=== PATIENT | female | born 1950 | race Two or more races ===

== ENCOUNTER → 2022-07-16 | Outpatient (CLI) | payer BC | END | disposition home or self-care (01) | LOC: XY 09:03 | PROVIDERS: ATTEND Internal Medicine | DX: M25.471 Effusion, right ankle (principal); R60.9 Edema, unspecified | CPT/HCPCS: 93970 ==

== ENCOUNTER → 2022-11-11 | Outpatient (CLI) | payer OTHER ==
[2022-11-11 11:55] LABS: Basophils # (auto) 0 10 ^3/uL (0-0.2); Basophils % (auto) 0.3 % (0.0-2.0); Eosinophils # (auto) 0.1 10 ^3/uL (0-0.8); Eosinophils % (auto) 1.1 % (0.0-7.0); Hematocrit 39.3 % (36.0-46.0); Hemoglobin 13.7 g/dL (12.2-16.2); Lymphocytes # (auto) 1.6 10 ^3/uL (0.4-5.4); Lymphocytes % (auto) 24.6 % (10.0-50.0); Mean Corpuscular Hemoglobin 31.1 pg (28.0-32.0); Mean Corpuscular Hgb Conc. 34.7 g/dL (32.0-36.0); Mean Corpuscular Volume 89.6 fL (80.0-100.0); Monocytes # (auto) 0.4 10 ^3/uL (0-1.3); Monocytes % (auto) 5.5 % (0.0-12.0); Neutrophils # (auto) 4.4 10 ^3/uL (1.6-8.6); Neutrophils % (auto) 68.5 % (37.0-80.0); Nucleated Red Blood Cells % 0.1 %; Red Blood Cells 4.39 10^6/uL (4.0-5.20); White Blood Cell 6.4 10^3/uL (4.4-10.8)
[2022-11-11 12:01] LABS: Albumin 3.8 g/dL (3.4-5.0); Calcium 9.4 mg/dL (8.5-10.1); Potassium 4.1 mmol/L (3.5-5.1)
[2022-11-11 12:07] LABS: BUN/Creatinine Ratio 22.9; Bilirubin, Total 0.7 mg/dL (0.2-1.0); Total Protein 7.7 g/dL (6.4-8.2)
== END | disposition home or self-care (01) ==
LOC: LAB 11:07
PROVIDERS: ATTEND Internal Medicine
DX: E78.5 Hyperlipidemia, unspecified (principal); E03.9 Hypothyroidism, unspecified; R73.03 Prediabetes
CPT/HCPCS: 36415; 80053; 80061; 83036; 84439; 84443; 85025

== ENCOUNTER 2023-07-20 15:51 | Emergency (ER) | payer BC, OTHER ==
[~2023-07-20] VITALS: Ht 160 cm; Wt 105.9 kg
[2023-07-20 17:35] LABS: Basophils # (auto) 0 10 ^3/uL (0-0.2); Basophils % (auto) 0.4 % (0.0-2.0); Eosinophils # (auto) 0.1 10 ^3/uL (0-0.8); Eosinophils % (auto) 1.6 % (0.0-7.0); Hematocrit 39.8 % (36.0-46.0); Hemoglobin 13.5 g/dL (12.2-16.2); Lymphocytes # (auto) 1.8 10 ^3/uL (0.4-5.4); Lymphocytes % (auto) 30.4 % (10.0-50.0); Mean Corpuscular Hemoglobin 30.8 pg (28.0-32.0); Mean Corpuscular Hgb Conc. 33.8 g/dL (32.0-36.0); Mean Corpuscular Volume 91.1 fL (80.0-100.0); Monocytes # (auto) 0.4 10 ^3/uL (0-1.3); Monocytes % (auto) 6.4 % (0.0-12.0); Neutrophils # (auto) 3.6 10 ^3/uL (1.6-8.6); Neutrophils % (auto) 61.2 % (37.0-80.0); Nucleated Red Blood Cells % 0.1 %; Red Blood Cells 4.37 10^6/uL (4.0-5.20); Red Cell Distribution Width 13.2 % (11.8-14.3); White Blood Cell 5.9 10^3/uL (4.4-10.8)
[2023-07-20 18:06] LABS: Alanine Aminotransferase 34 U/L (7-40); Albumin 4.9 g/dL (3.2-4.8); Alkaline Phosphatase 81 U/L (46-116); Anion Gap 7 (5-15); Aspartate Aminotransferase 20 U/L (13-40); BUN/Creatinine Ratio 15.9 (10.0-20.0); Bilirubin, Total 0.5 mg/dL (0.2-1.0); Blood Urea Nitrogen 11 mg/dL (9-23); Calcium 9.6 mg/dL (8.7-10.4); Carbon Dioxide 28 mmol/L (20-30); Chloride 105 mmol/L (98-107); Glucose 106 mg/dL (74-106); Potassium 3.7 mmol/L (3.5-5.1); Sodium 140 mmol/L (136-145); Total Protein 7.1 g/dL (5.7-8.2)
[2023-07-20 18:22] LABS: INR 0.99 (0.9-1.15); Partial Thromboplastin Time 26.8 SEC (24.5-34.5); Prothrombin Time 10.4 sec (9.3-11.8)
[2023-07-20 18:46] LABS: Urine Bacteria NONE SEEN /hpf (None Seen); Urine Blood Negative /uL (Negative); Urine Clarity Clear (Clear); Urine Color Yellow (Yellow); Urine Mucus FEW (None Seen); Urine Protein, UAD Negative (Negative); Urine Specific Gravity 1.014 (1.001-1.035); Urine Urobilinogen Normal (Negative); Urine WBC 1 /hpf (0 - 5); Urine pH 6.5 (5.0-8.0)
[2023-07-20 20:20] VITALS: PULSE 65; RESP 20; TEMP 98.4; O2SAT 97
[2023-07-20] MEDS ORDERED: ASPirin 325 MG TAB PO ONE (20:30)
[2023-07-20] MEDS ORDERED: cloNIDine HCL 0.1 MG TAB PO ONE (20:45)
[2023-07-20] MEDS ORDERED: cloNIDine 0.1 mg/24hr 7 DAY PATCH TD ONE (20:45)
[2023-07-20 21:48] VITALS: BP 123/70; PULSE 52; RESP 20; O2SAT 95
[2023-07-20] MEDS ORDERED: LOSA25TA15 PO (21:53)
== END 2023-07-20 22:04 | disposition home or self-care (01) ==
LOC: ER 15:51
DX: G45.9 Transient cerebral ischemic attack, unspecified (principal); R06.02 Shortness of breath
CPT/HCPCS: 36415; 70450; 71045; 80053; 81001; 85025; 85610; 85730; 93005

== ENCOUNTER → 2023-08-12 | Outpatient (CLI) | payer OTHER ==
[~2023-08-12] MED LIST: LOSA25TA15 PO
[2023-08-12 13:20] LABS: Chloride 105 mmol/L (98-107); Sodium 141 mmol/L (136-145)
[2023-08-12 13:21] LABS: Anion Gap 6 (5-15); Calcium 9.6 mg/dL (8.5-10.1); Carbon Dioxide 30 mmol/L (20-30)
[2023-08-12 13:26] LABS: BUN/Creatinine Ratio 15.8 (10.0-20.0); Blood Urea Nitrogen 12 mg/dL (9-23); Glucose 117 mg/dL (74-106)
== END | disposition home or self-care (01) ==
LOC: LAB 13:01
PROVIDERS: ATTEND Internal Medicine
DX: G45.9 Transient cerebral ischemic attack, unspecified (principal)
CPT/HCPCS: 36415; 80048

== ENCOUNTER → 2023-08-17 | Outpatient (CLI) | payer OTHER | END | disposition home or self-care (01) | LOC: XYW 12:26 | PROVIDERS: ATTEND Internal Medicine | DX: I13.10 Hypertensive heart and chronic kidney disease without heart failure, with stage 1 through stage 4 chronic kidney disease, or unspecified chronic kidney disease (principal); N18.9 Chronic kidney disease, unspecified; G45.9 Transient cerebral ischemic attack, unspecified | CPT/HCPCS: 93306 ==

== ENCOUNTER → 2023-09-09 | Outpatient (CLI) | payer OTHER ==
[2023-09-09 10:07] LABS: Basophils # (auto) 0 10 ^3/uL (0-0.2); Basophils % (auto) 0.4 % (0.0-2.0); Eosinophils # (auto) 0.1 10 ^3/uL (0-0.8); Eosinophils % (auto) 1.5 % (0.0-7.0); Hematocrit 38.6 % (36.0-46.0); Lymphocytes # (auto) 1.7 10 ^3/uL (0.4-5.4); Lymphocytes % (auto) 23.9 % (10.0-50.0); Mean Corpuscular Hemoglobin 30.6 pg (28.0-32.0); Mean Corpuscular Hgb Conc. 33.6 g/dL (32.0-36.0); Mean Corpuscular Volume 91.1 fL (80.0-100.0); Monocytes # (auto) 0.4 10 ^3/uL (0-1.3); Monocytes % (auto) 5.8 % (0.0-12.0); Neutrophils # (auto) 4.8 10 ^3/uL (1.6-8.6); Neutrophils % (auto) 68.4 % (37.0-80.0); Nucleated Red Blood Cells % 0.1 %; Red Blood Cells 4.24 10^6/uL (4.0-5.20); Red Cell Distribution Width 13.3 % (11.8-14.3)
[2023-09-09 10:29] LABS: Urine Bacteria NONE SEEN /hpf (None Seen); Urine Blood Negative /uL (Negative); Urine Clarity Clear (Clear); Urine Color Yellow (Yellow); Urine Mucus FEW (None Seen); Urine Protein, UAD TRACE (Negative); Urine Specific Gravity 1.028 (1.001-1.035); Urine Urobilinogen Normal (Negative); Urine WBC 10 /hpf (0 - 5); Urine pH 5.5 (5.0-8.0)
[2023-09-09 11:04] LABS: Alanine Aminotransferase 25 U/L (7-40); Albumin 4.4 g/dL (3.2-4.8); Alkaline Phosphatase 78 U/L (46-116); Anion Gap 6 (5-15); Aspartate Aminotransferase 17 U/L (13-40); Bilirubin, Total 0.6 mg/dL (0.2-1.0); Blood Urea Nitrogen 17 mg/dL (9-23); Calcium 9.2 mg/dL (8.5-10.1); Carbon Dioxide 29 mmol/L (20-30); Chloride 108 mmol/L (98-107); Cholesterol 129 mg/dL (< 200); Glucose 117 mg/dL (74-106); HDL Cholesterol 47 mg/dL (40-59); LDL Cholesterol 70 mg/dL (< 100); Potassium 3.9 mmol/L (3.5-5.1); Sodium 143 mmol/L (136-145); Total Protein 7.3 g/dL (5.7-8.2); Triglycerides 85 mg/dL (< 150)
== END | disposition home or self-care (01) ==
LOC: LAB 09:45
PROVIDERS: ATTEND Internal Medicine
DX: N18.2 Chronic kidney disease, stage 2 (mild) (principal); E78.5 Hyperlipidemia, unspecified; E03.9 Hypothyroidism, unspecified; R73.03 Prediabetes
CPT/HCPCS: 36415; 80053; 80061; 81001; 83036; 84439; 84443; 85025

== ENCOUNTER → 2023-10-11 | Outpatient (CLI) | payer OTHER ==
[2023-10-11 13:56] LABS: Urine Bacteria NONE SEEN /hpf (None Seen); Urine Blood Negative /uL (Negative); Urine Clarity Clear (Clear); Urine Color Yellow (Yellow); Urine Mucus FEW (None Seen); Urine Protein, UAD TRACE (Negative); Urine Specific Gravity 1.023 (1.001-1.035); Urine Urobilinogen Normal (Negative); Urine WBC 17 /hpf (0 - 5); Urine pH 5.5 (5.0-8.0)
[2023-10-11 14:09] LABS: Chloride 102 mmol/L (98-107); Potassium 3.5 mmol/L (3.5-5.1); Sodium 140 mmol/L (136-145)
[2023-10-11 14:10] LABS: Anion Gap 9 (5-15); Calcium 9.9 mg/dL (8.5-10.1); Carbon Dioxide 29 mmol/L (20-30)
[2023-10-11 14:15] LABS: Blood Urea Nitrogen 16 mg/dL (9-23); Glucose 145 mg/dL (74-106)
== END | disposition home or self-care (01) ==
LOC: LAB 13:24
PROVIDERS: ATTEND Internal Medicine
DX: I12.9 Hypertensive chronic kidney disease with stage 1 through stage 4 chronic kidney disease, or unspecified chronic kidney disease (principal); N18.2 Chronic kidney disease, stage 2 (mild); R82.90 Unspecified abnormal findings in urine
CPT/HCPCS: 36415; 80048; 81001; 82306

== ENCOUNTER 2024-03-24 14:33 | Emergency (ER) | payer BC, OTHER ==
[~2024-03-24] VITALS: Ht 160 cm; Wt 100.0 kg
[~2024-03-24 14:33] MED LIST changes: +LOSA-533 PO; -LOSA25TA15 PO
[2024-03-24 15:05] VITALS: BP 145/76; PULSE 56; RESP 16; TEMP 97.9; O2SAT 95
== END 2024-03-24 15:38 | disposition home or self-care (01) ==
LOC: ER 14:33
DX: S09.90XA Unspecified injury of head, initial encounter (principal); I10 Essential (primary) hypertension; Z86.73 Personal history of transient ischemic attack (TIA), and cerebral infarction without residual deficits; Z79.899 Other long term (current) drug therapy; W18.39XA Other fall on same level, initial encounter; Y93.89 Activity, other specified; Y92.89 Other specified places as the place of occurrence of the external cause; Y99.8 Other external cause status
CPT/HCPCS: 70450

== ENCOUNTER → 2024-04-24 | Outpatient (CLI) | payer OTHER ==
[2024-04-24 11:27] LABS: Anion Gap 6 (5-15); Carbon Dioxide 27 mmol/L (20-30); Chloride 105 mmol/L (98-107); Potassium 3.7 mmol/L (3.5-5.1); Sodium 138 mmol/L (136-145)
[2024-04-24 11:28] LABS: Calcium 9.8 mg/dL (8.5-10.1)
[2024-04-24 11:33] LABS: BUN/Creatinine Ratio 18.7 (10.0-20.0); Blood Urea Nitrogen 14 mg/dL (9-23); Glucose 128 mg/dL (74-106)
== END | disposition home or self-care (01) ==
LOC: LAB 10:30
PROVIDERS: ATTEND Internal Medicine
DX: I12.9 Hypertensive chronic kidney disease with stage 1 through stage 4 chronic kidney disease, or unspecified chronic kidney disease (principal); N18.2 Chronic kidney disease, stage 2 (mild); R11.0 Nausea; R60.0 Localized edema; R45.0 Nervousness
CPT/HCPCS: 36415; 80048

== ENCOUNTER → 2024-12-04 | Outpatient (CLI) | payer BC ==
[2024-12-04 10:23] LABS: Urine Bacteria None Seen /hpf (None Seen)
[2024-12-04 11:54] LABS: Basophils # (auto) 0 10 ^3/uL (0-0.2); Basophils % (auto) 0.2 % (0.0-2.0); Eosinophils # (auto) 0.1 10 ^3/uL (0-0.8); Eosinophils % (auto) 1.9 % (0.0-7.0); Hematocrit 38.1 % (36.0-46.0); Lymphocytes # (auto) 1.6 10 ^3/uL (0.4-5.4); Lymphocytes % (auto) 28.5 % (10.0-50.0); Mean Corpuscular Hemoglobin 31.5 pg (28.0-32.0); Mean Corpuscular Hgb Conc. 34.2 g/dL (32.0-36.0); Mean Corpuscular Volume 92.4 fL (80.0-100.0); Monocytes # (auto) 0.3 10 ^3/uL (0-1.3); Monocytes % (auto) 5.7 % (0.0-12.0); Neutrophils # (auto) 3.6 10 ^3/uL (1.6-8.6); Neutrophils % (auto) 63.7 % (37.0-80.0); Nucleated Red Blood Cells % 0.1 %; Platelet Count (auto) 183 10^3/uL (140-450); Red Blood Cells 4.12 10^6/uL (4.0-5.20); Red Cell Distribution Width 12.8 % (11.8-14.3); White Blood Cell 5.6 10^3/uL (4.4-10.8)
[2024-12-04 12:12] LABS: Urine Blood Negative /uL (Negative); Urine Clarity Clear (Clear); Urine Color Yellow (Yellow); Urine Mucus FEW (None Seen); Urine Protein, UAD TRACE (Negative); Urine Specific Gravity 1.026 (1.001-1.035); Urine Squamous Epithelial Cell FEW /hpf (<5); Urine Urobilinogen Normal (Negative); Urine WBC 2 /HPF (0-5); Urine pH 5.5 (5.0-9.0)
[2024-12-04 12:29] LABS: Alanine Aminotransferase 15 U/L (7-40); Alkaline Phosphatase 77 U/L (46-116); Anion Gap 8 (5-15); Carbon Dioxide 29 mmol/L (20-31); Chloride 104 mmol/L (98-107); Potassium 4.1 mmol/L (3.5-5.1); Sodium 141 mmol/L (136-145); Triglycerides 98 mg/dL (< 150)
[2024-12-04 12:30] LABS: BUN/Creatinine Ratio 19.5 (10.0-20.0); Blood Urea Nitrogen 15 mg/dL (9-23); LDL Cholesterol 90 mg/dL (< 100)
[2024-12-04 12:31] LABS: Albumin 4.6 g/dL (3.2-4.8); Aspartate Aminotransferase 14 U/L (13-40); Cholesterol 149 mg/dL (< 200); Glucose 117 mg/dL (74-106); HDL Cholesterol 49 mg/dL (40-59)
[2024-12-04 12:42] LABS: Bilirubin, Total 0.6 mg/dL (0.2-1.0)
[2024-12-04 12:43] LABS: Total Protein 7.2 g/dL (5.7-8.2)
== END | disposition home or self-care (01) ==
LOC: LAB 10:09
PROVIDERS: ATTEND Internal Medicine
DX: Z00.01 Encounter for general adult medical examination with abnormal findings (principal); I12.9 Hypertensive chronic kidney disease with stage 1 through stage 4 chronic kidney disease, or unspecified chronic kidney disease; N18.2 Chronic kidney disease, stage 2 (mild); E55.9 Vitamin D deficiency, unspecified; R00.1 Bradycardia, unspecified; R73.03 Prediabetes; R82.90 Unspecified abnormal findings in urine
CPT/HCPCS: 36415; 80053; 80061; 81001; 82306; 83036; 84439; 84443; 85025

== ENCOUNTER 2025-08-06 10:34 | Outpatient (CLI) | payer BC ==
[2025-08-06 11:21] LABS: Hematocrit 40.3 % (36.0-46.0); Hemoglobin 13.7 g/dL (12.2-16.2); Mean Corpuscular Hemoglobin 31.0 pg (28.0-32.0); Mean Corpuscular Volume 91.1 fL (80.0-100.0); Nucleated Red Blood Cells % 0.1 %
[2025-08-06 12:01] LABS: Free T3 2.84 pg/mL (2.3-4.2)
[2025-08-06 12:02] LABS: Alanine Aminotransferase 13 U/L (7-40); Albumin 4.6 g/dL (3.2-4.8); Alkaline Phosphatase 79 U/L (46-116); Anion Gap 10 (5-15); BUN/Creatinine Ratio 11.4 (10.0-20.0); Blood Urea Nitrogen 12 mg/dL (9-23); Calcium 9.5 mg/dL (8.7-10.4); Carbon Dioxide 28 mmol/L (20-31); Chloride 103 mmol/L (98-107); Cholesterol 147 mg/dL (< 200); Free T4 (Free Thyroxine) 1.11 ng/dL (0.89-1.76); HDL Cholesterol 53 mg/dL (40-59); Potassium 4.6 mmol/L (3.5-5.1); Sodium 141 mmol/L (136-145); Total Protein 7.8 g/dL (5.7-8.2); Triglycerides 76 mg/dL (< 150)
[2025-08-06 12:03] LABS: Bilirubin, Total 0.6 mg/dL (0.2-1.0); Glucose 110 mg/dL (74-106)
== END 2025-08-06 17:00 | disposition home or self-care (01) ==
LOC: LAB 10:34
PROVIDERS: ATTEND Internal Medicine
DX: E78.5 Hyperlipidemia, unspecified (principal); R73.03 Prediabetes
CPT/HCPCS: 36415; 80053; 80061; 84439; 84443; 84481; 85025

== ENCOUNTER 2025-09-03 09:18 | Outpatient (CLI) | payer BC ==
[2025-09-03 10:17] LABS: Hematocrit 38.0 % (36.0-46.0); Hemoglobin 12.9 g/dL (12.2-16.2); Mean Corpuscular Hemoglobin 31.1 pg (28.0-32.0); Mean Corpuscular Volume 91.5 fL (80.0-100.0); Nucleated Red Blood Cells % 0.0 %
[2025-09-03 10:38] LABS: Urine Protein, UAD TRACE (Negative)
[2025-09-03 10:42] LABS: Alanine Aminotransferase 13 U/L (7-40); Alkaline Phosphatase 84 U/L (46-116); Calcium 9.1 mg/dL (8.7-10.4); Carbon Dioxide 29 mmol/L (20-31); Chloride 102 mmol/L (98-107); Triglycerides 102 mg/dL (< 150)
[2025-09-03 10:43] LABS: Albumin 4.4 g/dL (3.2-4.8); Anion Gap 9 (5-15); BUN/Creatinine Ratio 16.9 (10.0-20.0); Bilirubin, Total 0.8 mg/dL (0.2-1.0); Blood Urea Nitrogen 14 mg/dL (9-23); Cholesterol 145 mg/dL (< 200); HDL Cholesterol 47 mg/dL (40-59); Potassium 3.7 mmol/L (3.5-5.1); Sodium 140 mmol/L (136-145); Total Protein 7.5 g/dL (5.7-8.2)
[2025-09-03 10:48] LABS: Glucose 109 mg/dL (74-106)
== END 2025-09-03 17:00 | disposition home or self-care (01) ==
LOC: LAB 09:18
PROVIDERS: ATTEND Internal Medicine
DX: N18.2 Chronic kidney disease, stage 2 (mild) (principal); E78.5 Hyperlipidemia, unspecified; E55.9 Vitamin D deficiency, unspecified; R73.03 Prediabetes
CPT/HCPCS: 36415; 80053; 80061; 81001; 82306; 83036; 84439; 84443; 85025

== ENCOUNTER 2025-09-07 09:57 | Day surgery (SDC) | payer BC ==
[2025-09-04 11:18] LABS: INR 0.98 (0.9-1.15); Partial Thromboplastin Time 25.6 SEC (24.5-34.5); Prothrombin Time 10.4 sec (9.3-11.8)
[~2025-09-07] VITALS: Ht 160 cm; Wt 98.4 kg
[2025-09-07] MEDS ORDERED: SODIUM CHLORIDE LOCK 10 ML ONE (10:10)
[2025-09-07 10:39] VITALS: PULSE 51; RESP 13; O2SAT 100
[2025-09-07] MEDS: diphenhydrAMINE HCL 50 MG/1 ML VL ONE (10:42)
[2025-09-07] MEDS: MIDAZOLAM HCL 5 MG/ML-1ML VIAL ONE (10:42)
[2025-09-07] MEDS: fentaNYL CITRATE 100 MCG/2 ML VL ONE (10:42)
--- NOTE | 2025-09-07 11:01 | DVHOP2 ---
Operative Report DATE OF OPERATION: 09/07/25 PROCEDURE: Colonoscopy with cold biopsy. PREOPERATIVE INDICATION: The patient is a 75 -year-old female undergoing colonoscopy for surveillance with personal history of colon polyps and family history of rectal cancer POSTOPERATIVE DIAGNOSES: 1. Moderate left colon diverticular disease most prominent in the sigmoid with sigmoid muscular hypertrophy and minimal associated sigmoiditis from which biopsies were obtained 2. Trace internal hemorrhoids otherwise completely normal colonoscopy examination up to the cecum and terminal ileum PROCEDURE PERFORMED BY: Jayla Serrano M.D. SCOPE: Olympus videocolonoscope. ASA CLASS: 2 PREOPERATIVE MEDICATIONS: Versed 4 mg, Fentanyl 100 mcg, Benadryl 50 mg PROCEDURE IN DETAIL: After obtaining an informed consent, the patient was placed on left lateral decubitus position. She was then sedated with the above medications. A rectal examination was performed that was normal. The colonoscope was then passed through the anus into the rectosigmoid and through the descending, transverse, and ascending colon up to the cecum with visualization of the appendiceal orifice, base of the cecum and the ileocecal valve. The colonoscope was then withdrawn. The distal 5 cm of the terminal ileum were normal No masses or polyps were seen. Patient had moderate left colon diverticular disease most prominent in the sigmoid There was minimal diverticular associated sigmoiditis from which biopsies were obtained On retroflexion and straight on view she had trace internal hemorrhoids The patient tolerated the procedure well without difficulty. WITHDRAWAL TIME: 6 minutes QUALITY OF THE PREP: Rosamond Bowel Prep score: 9. COMPLICATIONS : None SPECIMENS: Sigmoid colon biopsies DISPOSITION: Stable D/C to home PLAN: 1. Repeat colonoscopy in five years 2. Resume GI soft diet advance as tolerated 3. Increase fluid and fiber intake 4. Outpatient follow up with me in 4-6 weeks to review results and discuss further management JAYLA SERRANO MD Sep 07, 2025 11:01
[2025-09-07 11:04] VITALS: PULSE 64; RESP 16; TEMP 97.3; O2SAT 95
[2025-09-07 12:19] VITALS: BP 138/53; PULSE 47; RESP 13; O2SAT 99
== END 2025-09-07 12:44 | disposition home or self-care (01) ==
LOC: GI 09:57
PROVIDERS: ATTEND Internal Medicine Gastroenterology
DX: Z12.11 Encounter for screening for malignant neoplasm of colon (principal); K57.30 Diverticulosis of large intestine without perforation or abscess without bleeding; K52.9 Noninfective gastroenteritis and colitis, unspecified; K64.8 Other hemorrhoids; J44.9 Chronic obstructive pulmonary disease, unspecified; Z80.0 Family history of malignant neoplasm of digestive organs; Z98.890 Other specified postprocedural states; Z79.899 Other long term (current) drug therapy; Z79.82 Long term (current) use of aspirin; Z86.0100 Personal history of colon polyps, unspecified; Z98.891 History of uterine scar from previous surgery; Z79.01 Long term (current) use of anticoagulants
CPT/HCPCS: 36415; 45380; 85610; 85730; 88305; J1200; J2250; J3010; J7030; 99152